=== PATIENT | male | born 1940 | race Caucasian/White ===

== ENCOUNTER → 2018-12-31 13:53 | Outpatient (CLI) | payer MEDICARE, BC ==
[2015-11-16 09:01] VITALS: BMI 17.6
[~2018-12-31 13:53] MED LIST: CARAFATE1 G PO; LEVAQUIN PREMI750 MG PO; LEVSIN/ANASP0.125 MG PO; OMEGA 3 FISH OI1 CAP PO; PEPCID20 MG PO; PRILOSEC20 MG PO
== END | disposition home or self-care (01) ==
LOC: D.MRI 13:53
PROVIDERS: ATTEND Family Medicine
DX: M51.36 Other intervertebral disc degeneration, lumbar region (principal); R20.2 Paresthesia of skin

== ENCOUNTER 2019-01-22 07:35 | Inpatient (IN) | payer MEDICARE, BC ==
[2019-01-22] MEDS ORDERED: MOBIC7.5 MG PO (07:42)
--- NOTE | 2019-01-22 07:57 | NUR ---
ERP AT BEDSIDE.
[2019-01-22 08:35] LABS: ALKALINE PHOSPHATASE 72 U/L (46-116); ALT (SGPT) 23 U/L (10-68); BILIRUBIN - TOTAL 0.46 mg/dL (0.2-1.3); CALC OSMOLALITY 267 mosm/kg (275-300); CALCIUM 8.5 mg/dL (8.5-10.1); CARBON DIOXIDE 28.7 mmol/L (21.0-32.0); CHLORIDE - SERUM 102 mmol/L (98-107); MAGNESIUM - SERUM 1.8 mg/dL (1.8-2.4); POTASSIUM - SERUM 3.9 mmol/L (3.5-5.1); PROTEIN - SERUM 6.5 g/dL (6.4-8.2); SODIUM 133 mmol/L (136-145); UREA NITROGEN 17 mg/dL (7-18); eGFR NON AFRICAN AMERICAN 77 mL/min (90-120)
[2019-01-22 08:37] LABS: GLUCOSE 96 mg/dL (74-106)
[2019-01-22 08:41] LABS: HEMATOCRIT 34.4 % (42.0-54.0); HEMOGLOBIN 11.8 g/dL (13.5-17.5); MCH 28.9 pg (26.0-34.0); MCHC 34.3 g/dL (31.0-37.0); MCV 84.1 fL (80.0-100.0); MEAN PLATELET VOLUME 9.8 fL (7.4-10.4); PLATELET COUNT 212 10x3/uL (130-400); RBC 4.09 10x6/uL (4.20-6.10); RDW 13.5 % (11.5-14.5); WBC 21.6 10x3/uL (4.8-10.8)
--- NOTE | 2019-01-22 09:01 | NUR ---
CLEAN CATCH URINE COLLECTED AND SENT TO LAB.
[2019-01-22 09:09] LABS: APPEARANCE CLEAR (CLEAR); BILIRUBIN NEGATIVE (NEGATIVE); COLOR STRAW (YELLOW); GLUCOSE NEGATIVE (NEGATIVE); KETONE NEGATIVE (NEGATIVE); NITRITE NEGATIVE (NEGATIVE); PROTEIN NEGATIVE (NEGATIVE); SPECIFIC GRAVITY 1.005 (1.005-1.020); UROBILINOGEN NORMAL (NORMAL)
[2019-01-22 09:31] VITALS: BP 145/73
[2019-01-22 09:59] LABS: LYMPHOCYTES 5 % (15-50); MONOCYTES 7 % (2-11); NEUTROPHILS 86 % (40-80); PLATELET ESTIMATE NORMAL
--- NOTE | 2019-01-22 10:30 | NUR ---
PT DENIES NEEDS AT THIS TIME. BED LOW, SIDE RAILS X'S 2, CALL LIGHT IN REACH, AT BEDSIDE.
[2019-01-22 11:55] VITALS: BP 142/64
--- NOTE | 2019-01-22 11:56 | MORECARE ---
CASE MANAGEMENT DISCHARGE SUMMARY PATIENT: FATOUMATA RENDON UNIT: [id number] ADM DATE: 01/22/19 AGE: 78 : 42 SEX: M ROOM/BED: D.1210 AUTHOR: MAKI FAGAN PHYSICIAN: REFERRING PHYSICIAN: LARRY CABALLERO MD DATE OF SERVICE: 01/22/19 Discharge Plan Patient Name: FATOUMATA RENDON Facility: [facility]:[place] : 1940 Planned Disposition: Home Anticipated Discharge Date: Discharge Date: Expected LOS: Initial Reviewer: [email or web address] Initial Review Date: 01/22/2019 Generated: 01/22/19 12:56 pm DCP- Discharge Planning Updated by [email or web address]: Tessie Cabello on 01/22/19 10:[address] Patient Name: FATOUMATA RENDON Admission Status: ER Accout number: [id number] Admission Date: 01-22-2019 : 1940 Admission Diagnosis: Attending: LARRY CABALLERO Current LOS: 1 Anticipated DC Date: Planned Disposition: Home Primary Insurance: MEDICARE A & B Discharge Planning Comments: CM met with patient and his , Minerva Rendon, to complete initial dc planning assessment. CM educated patient on the CM role and verbal consent given by patient to complete assessment. CM verified patient's address, phone number, and emergency contact phone numbers. Patient lives at home with his . At discharge patient plans to return home with his and feels this is a safe discharge. CM discussed availability of home health, rehab services, and medical equipment. Patient denied known discharge needs at this time. Patient reports his will transport him home at time of discharge. CM will continue to follow and will assist as needed with dc plans/needs. Director Private: Tessie Cabello RN, [facility] DCPIA - Discharge Planning Initial Assessment Updated by [email or web address]: Tessie Cabello on 01/22/19 11:53 am * Is the patient Alert and Oriented? Yes * How many steps to enter\exit or inside your home? one * PCP Dr. Caballero * Pharmacy [facility] [address] * Preadmission Environment Home with Family * ADLs Partial Dependent * Partial ADLs (Assistance needed) Ambulation Dressing Medication Management Transfers * Equipment Cane Rolling Walker Wheelchair * List name and contact numbers for known caregivers / representatives who currently or will assist patient after discharge: Minerva Rendon - - [phone] * Verbal permission to speak to the caregivers and representatives has been obtained from the patient. Yes * Community resources currently utilized None * Additional services required to return to the preadmission environment? No * Can the patient safely return to the preadmission environment? Yes * Has this patient been hospitalized within the prior 30 days at any hospital? No Patient Name: FATOUMATA RENDON Page [phone] at 1156 All edits/amendments must be made on the electronic document DICTATION DATE: 01/22/19 1155 CUSHION MAKER: LISA 01/22/19 1155 RPT#: [id number] DC DATE: STATUS: ADM IN [facility] [address] [place] [address] END OF REPORT
[2019-01-22 13:22] VITALS: BMI 18.3
[2019-01-22 14:01] VITALS: BMI 17.6
--- NOTE | 2019-01-22 20:00 | NUR ---
EVENING ROUNDS MADE. PT SITTING UP IN BED. DENIES NEEDS AT THIS TIME. BREATHING EVEN AND UNALBORED. FAMILY AT BEDSIDE. ANNIE MAT ON. WILL CTM.
[2019-01-22 20:11] VITALS: BP 180/88
--- NOTE | 2019-01-22 21:01 | NUR ---
VITALS STABLE. PT TOOK MEDS WHOLE IN PUDDING. DENIES PAIN AT THIS TIME. NO FURTHER CONCERNS. WILL CTM.
--- NOTE | 2019-01-23 03:04 | NUR ---
PT RESTING COMFORTABLY AT THIS TIME. AT BEDSIDE. FALL PRECAUTIONS IN PLACE. BREATHING SHALLOW. RM AIR. YELLOW GOWN NON, NON SKID SOCKS, BED LOWERED AND LOCKED. ANNIE MAT ON, CL IN REACH. WILL CTM.
--- NOTE | 2019-01-23 05:33 | NUR ---
I AGREE WITH BINDER OPERATOR ASSESSMENT.
[2019-01-23 05:42] VITALS: BP 138/85
--- NOTE | 2019-01-23 10:30 | NUR ---
REC'D BACK PT BACK FROM [facility] FOR CYSTOSCOPY AND OLVERA INSERTION VIA DR. PARRA. URINE NOTED TO COLLECTION DEVICE YELLOW IN COLOR. NO C/O NOTED OR VOICED. AND C/L IN REACH AT BEDSIDE.
[2019-01-23 10:53] VITALS: BP 149/84
--- NOTE | 2019-01-23 11:22 | OP ---
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 PROCEDURE: Cystoscopy and insertion of Ruiz catheter over a guidewire. FINDINGS: Bulbar urethral false passage. Bilateral lateral lobe obstruction of the prostate with no median lobe. Heavily trabeculated bladder without bladder tumors. BLOOD LOSS: None. CLINICAL HISTORY: This is a 78-year-old male with esophageal cancer. He is able to tolerate a liquid diet only. He came with increasing back pain due to spinal stenosis. He has not been able to void. Attempts by the floor nurse to place a Ruiz catheter were unsuccessful yesterday and there was bleeding per the urethra afterwards. I attempted to place a coude catheter and again I was unsuccessful. He had a milkshake at about 4:00 p.m. and therefore the procedure was put off until today in the morning. He is not allergic to any medications. He was given Ancef 2 grams IV benefits sales consultant to the OR. DESCRIPTION OF PROCEDURE: The patient was given IV sedation. He was then placed into the lithotomy position and prepped and draped. A 21-Faroese cystoscope with 30-degree lens was used for visualization. There were no penile urethral strictures. There is a false passage in the bulbar urethra. The true urethral lumen was identified and the scope passed through the prostatic urethra and into the bladder. Findings are as outlined above. A Sensor wire was placed into the bladder through the cystoscope. The wire was left in the bladder wall. The scope was removed. Over the wire, a Councill tip 16-Faroese Ruiz catheter was inserted into the bladder. The balloon was then inflated with 10 cc of sterile water. The wire was then removed entirely. The catheter was put to bag drainage. TRANSINT:[id number] Voice Confirmation ID: [id number] DOCUMENT ID: [id number] RASHARD PARRA MD at 1122 CC: [id number] DICTATION DATE: 01/23/19 1022 BUILDING ENERGY CONSULTANT: 01/23/19 1104 ADM IN [facility] [address] [place] [address]
[2019-01-23 19:34] VITALS: BP 137/79
[2019-01-24 00:58] VITALS: BP 153/70
[2019-01-24 04:34] VITALS: BP 150/83
[2019-01-24 06:21] LABS: BASOPHILS 0.1 % (0-2); EOSINOPHILS 3.7 % (0-7); HEMATOCRIT 30.8 % (42.0-54.0); HEMOGLOBIN 10.4 g/dL (13.5-17.5); IMMATURE GRANULOCYTES 0.3 % (0-5); LYMPHOCYTES 7.2 % (15-50); MCH 28.4 pg (26.0-34.0); MCHC 33.8 g/dL (31.0-37.0); MCV 84.2 fL (80.0-100.0); MEAN PLATELET VOLUME 9.7 fL (7.4-10.4); MONOCYTES 9.7 % (2-11); RBC 3.66 10x6/uL (4.20-6.10); RDW 13.6 % (11.5-14.5)
[2019-01-24 06:25] LABS: PLATELET COUNT 166 10x3/uL (130-400); WBC 11.5 10x3/uL (4.8-10.8)
[2019-01-24 06:36] LABS: ALBUMIN 2.4 g/dL (3.4-5.0); ALKALINE PHOSPHATASE 52 U/L (46-116); ALT (SGPT) 18 U/L (10-68); BILIRUBIN - TOTAL 0.55 mg/dL (0.2-1.3); CALC OSMOLALITY 272 mosm/kg (275-300); CALCIUM 8.4 mg/dL (8.5-10.1); CARBON DIOXIDE 25.2 mmol/L (21.0-32.0); CHLORIDE - SERUM 105 mmol/L (98-107); CREATININE - SERUM 0.8 mg/dL (0.6-1.3); GLUCOSE 99 mg/dL (74-106); POTASSIUM - SERUM 4.2 mmol/L (3.5-5.1); PROTEIN - SERUM 5.8 g/dL (6.4-8.2); SODIUM 136 mmol/L (136-145); UREA NITROGEN 15 mg/dL (7-18); eGFR NON AFRICAN AMERICAN > 90 mL/min (90-120)
[2019-01-24 08:00] VITALS: BP 159/89
--- NOTE | 2019-01-24 08:00 | NUR ---
ASSESSMENT COMPLETE. SL TO L AC LEAKING. SL REMOVED. CATHETER TIP INTACT. OLVERA PATENT DRAINING YELLOW URINE. ANNIE MAT IN USE. FAMILY AT BEDSIDE. DENIES ANY NEEDS AT THIS TIME.
--- NOTE | 2019-01-24 10:15 | NUR ---
UNABLE TO RESITE IV X 1 ATTEMPT TO R FA.
--- NOTE | 2019-01-24 10:30 | NUR ---
IV SITED TO R AC WITH 20 GAUGE X 2 ATTEMPTS BY ANANYA SANCHESSTEAM SHOVELMAN.
--- NOTE | 2019-01-24 11:46 | NUR ---
OFF FLOOR TO MRI VIA STRETCHER.
[2019-01-24 12:05] VITALS: BP 160/90
--- NOTE | 2019-01-24 12:42 | NUR ---
RETURNED TO ROOM FROM MRI.
--- NOTE | 2019-01-24 15:19 | NUR ---
SCD'S APPLIED TO BILAT LEGS. FAMILY AT BEDSIDE. DENIES ANY NEEDS AT THIS TIME.
[2019-01-24 16:00] VITALS: BP 174/96
--- NOTE | 2019-01-24 17:15 | NUR ---
VISITING WITH FAMILY. DENIES ANY NEEDS AT THIS TIME.
--- NOTE | 2019-01-24 19:48 | NUR ---
RECIEVED UP IN BED WITH EYES OPEN AND TV ON. SPOUSE AT BEDSIDE. ALERT AND ORIENTED X4 WITH SENSE OF HUMOR. F/C INTACT WITH CLEAR YELLOW URINE IN BEDSIDE DRAINAGE BAG. IV TO RIGHT AC SL.. BED ALARM IN POLACE AND WORKING. DENIES ANY NEEDS.
[2019-01-24 20:20] VITALS: BP 155/93
[2019-01-25 00:59] VITALS: BP 145/80
[2019-01-25 05:31] VITALS: BP 150/80
[2019-01-25 06:25] LABS: BASOPHILS 0.1 % (0-2); EOSINOPHILS 2.6 % (0-7); HEMOGLOBIN 10.5 g/dL (13.5-17.5); IMMATURE GRANULOCYTES 0.1 % (0-5); LYMPHOCYTES 8.7 % (15-50); MCH 28.4 pg (26.0-34.0); MCHC 33.9 g/dL (31.0-37.0); MCV 83.8 fL (80.0-100.0); MEAN PLATELET VOLUME 9.9 fL (7.4-10.4); NEUTROPHILS 78.5 % (40-80); PLATELET COUNT 196 10x3/uL (130-400); RDW 13.3 % (11.5-14.5); WBC 10.5 10x3/uL (4.8-10.8)
[2019-01-25 06:42] LABS: ALBUMIN 2.4 g/dL (3.4-5.0); ALKALINE PHOSPHATASE 59 U/L (46-116); ALT (SGPT) 21 U/L (10-68); BILIRUBIN - TOTAL 0.55 mg/dL (0.2-1.3); CALC OSMOLALITY 275 mosm/kg (275-300); CALCIUM 8.4 mg/dL (8.5-10.1); CARBON DIOXIDE 25.7 mmol/L (21.0-32.0); CHLORIDE - SERUM 105 mmol/L (98-107); CREATININE - SERUM 0.8 mg/dL (0.6-1.3); GLUCOSE 99 mg/dL (74-106); POTASSIUM - SERUM 4.1 mmol/L (3.5-5.1); SODIUM 138 mmol/L (136-145); UREA NITROGEN 12 mg/dL (7-18); eGFR NON AFRICAN AMERICAN > 90 mL/min (90-120)
--- NOTE | 2019-01-25 07:25 | NUR ---
PT RESTING IN BED, EYES OPEN. AT BEDSIDE. NO C/O PAIN. NO S/S OF ACUTE DISTRESS NOTED. ALERT AND ORIENTED. FALL PRECAUTIONS IN PLACE, ANNIE ALARM ON. PT UP WITH ASSIST. OLVERA CATHETER PRESENT. PT WEARS GLASSES. TAKES MEDS IN APPLESAUCE. IV TO RIGHT AC, SL. SITE PATENT WITHOUT REDNESS OR SWELLING. SCDS ON. PT DENIES ANYTHING FURTHER AT THIS TIME. CALL LIGHT IN REACH. WILL CONTINUE TO MONITOR.
[2019-01-25 07:39] VITALS: BP 146/86
--- NOTE | 2019-01-25 10:45 | NUR ---
PT REQUESTED GLEN MANZANO, PUT IN A ONE TIME ORDER.
[2019-01-25 11:20] VITALS: BP 135/86
[2019-01-25 15:30] VITALS: BP 130/78
--- NOTE | 2019-01-25 18:30 | NUR ---
PT RESTING IN BED, EYES CLOSED. RESPIRATIONS EVEN AND UNLABORED. AT BEDSIDE. NO C/O PAIN. NO S/S OF ACUTE DISTRESS NOTED. CALL LIGHT IN REACH. WILL CONTINUE TO MONITOR.
[2019-01-25 19:43] VITALS: BP 155/80
--- NOTE | 2019-01-25 19:51 | NUR ---
PATIENT RESTING IN BED WITH NO S/S OF DISTRESS AND GUESTS AT BEDSIDE. PATIENT DENIES NEEDS AT THIS TIME. BED IN LOWEST POSITION AND CALL LIGHT WITHIN REACH. ENCOURAGED THE PATIENT TO CALL IF HE HAS NEEDS. WILL CONTINUE TO MONITOR.
[2019-01-26 05:30] VITALS: BP 154/90
[2019-01-26 06:40] LABS: BASOPHILS 0.1 % (0-2); EOSINOPHILS 3.5 % (0-7); HEMATOCRIT 29.4 % (42.0-54.0); HEMOGLOBIN 10.1 g/dL (13.5-17.5); IMMATURE GRANULOCYTES 0.3 % (0-5); LYMPHOCYTES 13.3 % (15-50); MCH 28.9 pg (26.0-34.0); MCHC 34.4 g/dL (31.0-37.0); MEAN PLATELET VOLUME 10.2 fL (7.4-10.4); MONOCYTES 13.1 % (2-11); NEUTROPHILS 69.7 % (40-80); PLATELET COUNT 196 10x3/uL (130-400); RDW 13.2 % (11.5-14.5)
[2019-01-26 06:47] LABS: WBC 7.4 10x3/uL (4.8-10.8)
[2019-01-26 07:10] LABS: ALBUMIN 2.2 g/dL (3.4-5.0); ALKALINE PHOSPHATASE 60 U/L (46-116); ALT (SGPT) 20 U/L (10-68); BILIRUBIN - TOTAL 0.39 mg/dL (0.2-1.3); CALC OSMOLALITY 276 mosm/kg (275-300); CALCIUM 8.1 mg/dL (8.5-10.1); CARBON DIOXIDE 28.8 mmol/L (21.0-32.0); CHLORIDE - SERUM 104 mmol/L (98-107); CREATININE - SERUM 0.9 mg/dL (0.6-1.3); GLUCOSE 89 mg/dL (74-106); POTASSIUM - SERUM 4.1 mmol/L (3.5-5.1); PROTEIN - SERUM 5.7 g/dL (6.4-8.2); SODIUM 138 mmol/L (136-145); UREA NITROGEN 18 mg/dL (7-18); eGFR NON AFRICAN AMERICAN 87 mL/min (90-120)
[2019-01-26 07:14] VITALS: BP 153/83
--- NOTE | 2019-01-26 08:41 | NUR ---
AM MEDS GIVEN AT THIS TIME. PT IN BED, DENIES ANY NEEDS AT THIS TIME. CALL LIGHT IN REACH, AT BEDSIDE, NAD NOTED, WILL CONTINUE TO MONITOR.
[2019-01-26 12:14] VITALS: BP 143/89
--- NOTE | 2019-01-26 12:34 | NUR ---
PT TO MRI AT THIS TIME.
--- NOTE | 2019-01-26 13:53 | NUR ---
PT BACK TO ROOM FROM MRI.
--- NOTE | 2019-01-26 14:45 | NUR ---
Nutrition follow up Pt is tolerating full liquid diet 100% intake of all meals yesterday Pt is drinking 3 Ensure enlive per day Full liquid is goal diet at this time as he is on this type of diet at home RD following
[2019-01-26 16:00] VITALS: BP 174/94
--- NOTE | 2019-01-26 20:45 | NUR ---
PT BP IS 186/110. CALLED DOCTOR AND DORCTOR ORDERED CLONIDINE 0.1MG FOR PT'S BP.
--- NOTE | 2019-01-26 22:40 | NUR ---
RECHECKED PT'S BP 145/84. CONTINUE PLAN OF CARE.
[2019-01-26 23:17] VITALS: BP 145/84
--- NOTE | 2019-01-27 00:41 | NUR ---
CHECKED PT'S MIDNIGHT VITAL. RESULT SEE FLOW SHEET.
[2019-01-27 00:53] VITALS: BP 143/99
--- NOTE | 2019-01-27 04:04 | NUR ---
I have reviewed this patient and I concur with the Shift Assessment completed by the Licensed Practical Nurse today this shift.
[2019-01-27 05:46] LABS: BASOPHILS 0.1 % (0-2); EOSINOPHILS 2.6 % (0-7); HEMATOCRIT 30.9 % (42.0-54.0); HEMOGLOBIN 10.5 g/dL (13.5-17.5); IMMATURE GRANULOCYTES 0.2 % (0-5); LYMPHOCYTES 10.8 % (15-50); MCH 28.7 pg (26.0-34.0); MCV 84.4 fL (80.0-100.0); MONOCYTES 10.4 % (2-11); NEUTROPHILS 75.9 % (40-80); PLATELET COUNT 207 10x3/uL (130-400); RBC 3.66 10x6/uL (4.20-6.10); RDW 13.1 % (11.5-14.5)
[2019-01-27 06:10] LABS: ALBUMIN 2.3 g/dL (3.4-5.0); ALKALINE PHOSPHATASE 63 U/L (46-116); ALT (SGPT) 20 U/L (10-68); BILIRUBIN - TOTAL 0.36 mg/dL (0.2-1.3); CALC OSMOLALITY 279 mosm/kg (275-300); CALCIUM 8.5 mg/dL (8.5-10.1); CARBON DIOXIDE 27.1 mmol/L (21.0-32.0); CHLORIDE - SERUM 105 mmol/L (98-107); CREATININE - SERUM 0.8 mg/dL (0.6-1.3); GLUCOSE 93 mg/dL (74-106); POTASSIUM - SERUM 4.2 mmol/L (3.5-5.1); PROTEIN - SERUM 5.9 g/dL (6.4-8.2); SODIUM 139 mmol/L (136-145); UREA NITROGEN 19 mg/dL (7-18); eGFR NON AFRICAN AMERICAN > 90 mL/min (90-120)
[2019-01-27 06:27] VITALS: BP 130/82
[2019-01-27 06:30] LABS: WBC 9.6 10x3/uL (4.8-10.8)
--- NOTE | 2019-01-27 06:58 | NUR ---
CARAFATE GIVEN WITH SMALL OF WATER ORDERED.
[2019-01-27 07:48] VITALS: BP 148/76
--- NOTE | 2019-01-27 07:54 | NUR ---
ALERT AND ORIENTED X 3. AT BEDSIDE. LUNGS CLEAR BILATERALLY IN ALL MARQUES. HEART SOUNDS S1 AND S2 HEARD IN ALL MARQUES. BOWEL SOUNDS ACTIVE X 4. SKIN INTACT WITHOUT REDNESS. IV TO RIGHT AC PATENT WITHOUT REDNESS SL. DENIES PAIN. DENIES NEEDS. BED LOW. FALL PRECAUTIONS IN PLACE. WILL CONTINUE TO MONITOR.
--- NOTE | 2019-01-27 09:40 | NUR ---
SPOKE WITH PHYSICIAN IN PT ROOM ABOUT NEED FOR POSSIBLE ESOPHAGEAL STENT. PHYSICIAN UNSURE IF NECESSARY. STATES PUT IN ORDER FOR CLEAR LIQUID DIET FOR NOW. ORDER PLACED.
[2019-01-27 12:12] VITALS: BP 145/76
--- NOTE | 2019-01-27 13:42 | NUR ---
RESTING IN BED. DENIES NEEDS. FAMILY AND FRIENDS AT BEDSIDE.
[2019-01-27 14:59] VITALS: BP 133/76
--- NOTE | 2019-01-27 17:11 | NUR ---
REQUESTED ENSURE. ORDERED PER ONE TIME REQUSET
--- NOTE | 2019-01-27 18:14 | NUR ---
RESTING IN BED. DENIES PAIN. DENIES NEEDS. AT BESIDE. BED LOW. FALL PRECAUTIONS IN PLACE.
[2019-01-27 19:44] VITALS: BMI 17.6
[2019-01-27 20:00] VITALS: BP 136/76
--- NOTE | 2019-01-27 21:34 | NUR ---
PT WITH EYES OPEN. FAMILY AT BEDSIDE. NO NEEDS MADE KNOWN. RECEIVED MEDICATIONS PER MAR. TOLERATED WELL. CALL LIGHT IN REACH. WILL CONTINUE TO OBSERVE.
[2019-01-28 00:15] VITALS: BP 133/76
--- NOTE | 2019-01-28 01:20 | NUR ---
PT RESTING WITH EYES CLOSED AND CHEST RISING. SLEEPING AT BEDSIDE. NO S/S OF DISTRESS. CALL LIGHT IN REACH. WILL CONTINUE TO OBSERVE.
[2019-01-28 04:23] VITALS: BP 138/79
[2019-01-28 07:34] LABS: BASOPHILS 0.1 % (0-2); EOSINOPHILS 0 % (0-7); HEMATOCRIT 33.9 % (42.0-54.0); HEMOGLOBIN 11.6 g/dL (13.5-17.5); IMMATURE GRANULOCYTES 0.2 % (0-5); LYMPHOCYTES 6.8 % (15-50); MCH 28.7 pg (26.0-34.0); MCHC 34.2 g/dL (31.0-37.0); MCV 83.9 fL (80.0-100.0); MEAN PLATELET VOLUME 9.7 fL (7.4-10.4); MONOCYTES 0.8 % (2-11); NEUTROPHILS 92.1 % (40-80); PLATELET COUNT 226 10x3/uL (130-400); RBC 4.04 10x6/uL (4.20-6.10); RDW 13.1 % (11.5-14.5); WBC 8.3 10x3/uL (4.8-10.8)
--- NOTE | 2019-01-28 07:34 | NUR ---
INITIAL ROUNDING ON THE PATIENT, HE IS RESTING IN BED WITH HOB AT 20 DEGREES. SPOUSE IN BEDSIDE CHAIR. PATIENT DENIES PAIN AND NEEDS AT THIS TIME. CALL LIGHT IN REACH
[2019-01-28 08:11] LABS: ALBUMIN 2.6 g/dL (3.4-5.0); ALKALINE PHOSPHATASE 72 U/L (46-116); ALT (SGPT) 23 U/L (10-68); BILIRUBIN - TOTAL 0.52 mg/dL (0.2-1.3); CALC OSMOLALITY 281 mosm/kg (275-300); CALCIUM 8.9 mg/dL (8.5-10.1); CHLORIDE - SERUM 103 mmol/L (98-107); CREATININE - SERUM 0.9 mg/dL (0.6-1.3); GLUCOSE 131 mg/dL (74-106); POTASSIUM - SERUM 4.3 mmol/L (3.5-5.1); PROTEIN - SERUM 6.8 g/dL (6.4-8.2); SODIUM 138 mmol/L (136-145); UREA NITROGEN 24 mg/dL (7-18); eGFR NON AFRICAN AMERICAN 87 mL/min (90-120)
[2019-01-28 08:25] VITALS: BP 133/85
[2019-01-28 11:53] VITALS: BP 128/79
[2019-01-28 17:17] VITALS: BP 138/78
[2019-01-28 20:00] VITALS: BP 154/100
--- NOTE | 2019-01-28 20:00 | NUR ---
PATIENT RECIEVED SITTING UP IN BED WITH AT HIS SIDE. VITAL SIGNS & ASSESSMENT DONE.NO C/O PAIN OR DISTRESS.CALL LIGHT WITHIN REACH. WILL [id number] TO MONITOR.
[2019-01-29] VITALS (7 sets, daily range): BP systolic 105–161; BP diastolic 67–94
--- NOTE | 2019-01-29 07:15 | NUR ---
INITIAL ROUNDING, PATIENT IS RESTING WITH EYES CLOSE, ON HIS LEFT SIDE. SPOUSE ASLEEP IN BEDSIDE CHAIR. CALL LIGHT IN REACH
--- NOTE | 2019-01-29 12:55 | NUR ---
Nutrition follow-up: Pt is receiving a clear/full liquid diet per request. Pt is drinking 3 Ensure a day and consuming milkshakes, mashed potatoes with gravy and other easy to swallow foods. Pts family is bringing food to pt that pt can swallow. Current wt of 130# is a stated weight. Pt has not been weighed on a scale since admit. Labs reviewed Recommend getting a current weight for pt. RDN following.
--- NOTE | 2019-01-29 23:20 | NUR ---
ASSESSED AT THE BEGINNING OF THE SHIFT. PT WAS UP IN SHOWER WITH ASSISTING HIM AT THE FIRST ROUND. HE CONTINUES TO HAVE A OLVERA IN PLACE AT THE BEDSIDE. HIS IV SITE IS SALINE LOCKED. ALL MEDS WERE TAKEN ORDERED AND NEITHER PATIENT OR HAVE VOICED ANY NEEDS. WILL CONTINURE TO MONITOR NEEDS.
[2019-01-30 03:43] VITALS: BP 152/89
--- NOTE | 2019-01-30 07:05 | NUR ---
INITIAL ROUNDING, THE PATIENT IS AWAKE AND SITTING UP IN THE BED WATHCHING TV, SPOUSE SITTING IN BEDSIDE CHAIR, PATIENT DENIES PAIN, NO SOB, AND DENIES ANY NEEDS AT THIS TIME. PATIENT IS HOPING TO GO HOME THIS MORNING. CALL LIGHT IN REACH, BED ALARM ON AND AUDIABLE
[2019-01-30 07:13] LABS: BASOPHILS 0 % (0-2); EOSINOPHILS 0 % (0-7); HEMOGLOBIN 10.5 g/dL (13.5-17.5); IMMATURE GRANULOCYTES 0.3 % (0-5); LYMPHOCYTES 4.8 % (15-50); MCH 29.2 pg (26.0-34.0); MCV 83.6 fL (80.0-100.0); MEAN PLATELET VOLUME 10.5 fL (7.4-10.4); NEUTROPHILS 91.9 % (40-80); PLATELET COUNT 226 10x3/uL (130-400); RBC 3.59 10x6/uL (4.20-6.10); RDW 13.3 % (11.5-14.5)
[2019-01-30 07:16] LABS: CALC OSMOLALITY 280 mosm/kg (275-300); CALCIUM 8.6 mg/dL (8.5-10.1); CARBON DIOXIDE 25.2 mmol/L (21.0-32.0); CHLORIDE - SERUM 105 mmol/L (98-107); CREATININE - SERUM 0.8 mg/dL (0.6-1.3); GLUCOSE 106 mg/dL (74-106); POTASSIUM - SERUM 3.9 mmol/L (3.5-5.1); SODIUM 139 mmol/L (136-145); UREA NITROGEN 22 mg/dL (7-18); eGFR NON AFRICAN AMERICAN > 90 mL/min (90-120)
[2019-01-30 07:17] LABS: WBC 15.8 10x3/uL (4.8-10.8)
[2019-01-30 08:32] VITALS: BP 134/76
[2019-01-30 12:30] VITALS: BP 160/90
[2019-01-30] MEDS ORDERED: LISINOPRIL10 MG PO (13:25)
[2019-01-30] MEDS ORDERED: DECADRON4 MG PO (13:26)
--- NOTE | 2019-01-30 14:57 | NUR ---
REMOVED THE IV FROM THE RIGHT FOREARM, PATIENT TOLERATED WELL
--- NOTE | 2019-01-30 18:20 | MORECARE ---
CASE MANAGEMENT DISCHARGE SUMMARY PATIENT: FATOUMATA RENDON UNIT: [id number] ADM DATE: 01/22/19 AGE: 78 : 44 SEX: M ROOM/BED: D.1210 AUTHOR: GRACIA,DOC PHYSICIAN: REFERRING PHYSICIAN: LARRY CABALLERO MD DATE OF SERVICE: 01/30/19 Discharge Plan Patient Name: FATOUMATA RENDON Facility: [facility]:[place] : 1940 Planned Disposition: Home Anticipated Discharge Date: Discharge Date: 01/30/2019 Expected LOS: Initial Reviewer: [email or web address] Initial Review Date: 01/22/2019 Generated: 01/30/19 7:20 pm DCP- Discharge Planning Updated by [email or web address]: Tessie Cabello on 01/22/19 10:[address] Patient Name: FATOUMATA RENDON Admission Status: ER Accout number: [id number] Admission Date: 01-22-2019 : 1940 Admission Diagnosis: Attending: LARRY CABALLERO Current LOS: 1 Anticipated DC Date: Planned Disposition: Home Primary Insurance: MEDICARE A & B Discharge Planning Comments: CM met with patient and his , Minerva Rendon, to complete initial dc planning assessment. CM educated patient on the CM role and verbal consent given by patient to complete assessment. CM verified patient's address, phone number, and emergency contact phone numbers. Patient lives at home with his . At discharge patient plans to return home with his and feels this is a safe discharge. CM discussed availability of home health, rehab services, and medical equipment. Patient denied known discharge needs at this time. Patient reports his will transport him home at time of discharge. CM will continue to follow and will assist as needed with dc plans/needs. Side Panel Padder: Tessie Cabello RN, [facility] DCPIA - Discharge Planning Initial Assessment Updated by [email or web address]: Tessie Cabello on 01/22/19 11:53 am * Is the patient Alert and Oriented? Yes * How many steps to enter\exit or inside your home? one * PCP Dr. Caballero * Pharmacy [facility] [address] * Preadmission Environment Home with Family * ADLs Partial Dependent * Partial ADLs (Assistance needed) Ambulation Dressing Medication Management Transfers * Equipment Cane Rolling Walker Wheelchair * List name and contact numbers for known caregivers / representatives who currently or will assist patient after discharge: Minerva Rendon - - [phone] * Verbal permission to speak to the caregivers and representatives has been obtained from the patient. Yes * Community resources currently utilized None * Additional services required to return to the preadmission environment? No * Can the patient safely return to the preadmission environment? Yes * Has this patient been hospitalized within the prior 30 days at any hospital? No Coverage Notice Reviewer: [email or web address] Sebastian Zhou Notice Issued Date-Time: 01/30/2019 14:14 Notice Type: IM Discharge Notice Notice Delivered To: Patient Relationship to Patient: Self School Traffic Guard Name: Delivery Method: HAND - Hand Delivered Rubi Days: Prior Verbal Notification: Recipient Understood Notice: Yes Recipient Signature: Yes Med Rec Note Co-signed by Attending: Coverage Notice Comment: Last DP export: 01/22/19 10:56 a Patient Name: FATOUMATA RENDON Page [phone] at 1820 All edits/amendments must be made on the electronic document DICTATION DATE: 01/30/191818 PACKAGE CAR DRIVER: LISA 01/30/191818 RPT#: [id number] DC DATE:01/30/19 STATUS: DIS IN [facility] [address] [place] [address] END OF REPORT
== END 2019-01-30 15:37 | disposition home health service (06) | DRG 840 ==
LOC: D.ER 07:35 → D.M3 10:58
PROVIDERS: Emergency Medicine; Urology; ADMIT Family Medicine; ATTEND Family Medicine
PROC: 0T9B80Z Drainage of Bladder with Drainage Device, Via Natural or Artificial Opening Endoscopic (ICD-10-PCS; principal; 2019-01-23 09:15)
DX: C85.92 Non-Hodgkin lymphoma, unspecified, intrathoracic lymph nodes (principal); G95.19 Other vascular myelopathies; C72.0 Malignant neoplasm of spinal cord; N13.8 Other obstructive and reflux uropathy; C79.49 Secondary malignant neoplasm of other parts of nervous system; C15.9 Malignant neoplasm of esophagus, unspecified; N40.1 Benign prostatic hyperplasia with lower urinary tract symptoms; K22.4 Dyskinesia of esophagus; M48.00 Spinal stenosis, site unspecified; R53.1 Weakness; K21.9 Gastro-esophageal reflux disease without esophagitis; D86.89 Sarcoidosis of other sites; K22.2 Esophageal obstruction

== ENCOUNTER 2019-02-24 07:58 | Day surgery (SDC) | payer MEDICARE, BC ==
[~2019-02-24] VITALS: Ht 182.9 cm; Wt 59.1 kg
--- NOTE | ~2019-02-24 | OP ---
PATIENT NAME: FATOUMATA RENDON MEDICAL RECORD: [id number] :44 LOCATION:D[facility] ADMISSION DATE: SURGEON: RASHARD COOK MD DATE OF OPERATION: 02/24/2019 PREOPERATIVE DIAGNOSES: 1. Esophageal stricture, in need of esophagectomy. 2. Inability to pass the manometry catheter. POSTOPERATIVE DIAGNOSES: 1. Esophageal stricture, in need of esophagectomy with apparent resolution of the esophageal stricture. 2. Inability to pass the manometry catheter. 3. Paraesophageal hernia. PROCEDURES: 1. Esophagogastroduodenoscopy with antral and distal esophageal biopsies. Antral biopsies were to rule out H. pylori and the distal esophageal biopsies were to rule out George esophagus. 2. Endoscopic placement of manometry catheter. SURGEON: Rashard Cook MD PLANE CAPTAIN: None. BLOOD LOSS: Minimal. ANESTHESIA: IV sedation. COMPLICATIONS: None. The risks, possible complications and alternatives to the procedure were explained to the patient. He elects to proceed. The discussion specifically included, but was not limited to, bleeding requiring emergency reoperation, infection, endoscopic perforation. ENDOSCOPIC COURSE: The patient was conveyed to the endoscopy suite electively on 02/24/2019. IV sedation was induced by the anesthesia staff. A bite block was inserted. A gastroscope was inserted into the mouth. It was advanced easily into the hypopharynx. The esophagus was easily intubated as were the stomach and duodenum. Upon withdrawal, retroflexed and angulus views were obtained. Antral biopsies were obtained. Distal esophageal biopsies were obtained. I then withdrew the endoscope into the hypopharynx. Through a nostril, I advanced the manometry catheter. I was able to guide this by inserting my fingers into his mouth. I advanced into the esophagus through the cricopharyngeus. I then intubated the esophagus with my gastroscope. I was able to push the manometry catheter with the endoscope down into the body of the stomach. I then slowly withdrew the endoscope. There was no dislodgement of the manometry catheter. It did curl somewhat in the mouth. I was able to uncurl it and advanced it a bit further. The gastroscope was then withdrawn under direct vision. The manometry catheter is going to be backed out by the nurse to the appropriate OPERATIVE REPORT [id number] FATOUMATA RENDON level and the manometric study will take place prior to him going back to his room. TRANSINT:[id number] Voice Confirmation ID: [id number] DOCUMENT ID: [id number] RASHARD COOK MD CC: [id number] DICTATION DATE: 02/24/19 1237 CERTIFIED PESTICIDE APPLICATOR: 02/24/19 1324 [facility] [place] [id number] [place] [id number]
[~2019-02-24 07:58] MED LIST changes: +DECADRON4 MG PO; +LISINOPRIL10 MG PO; +MOBIC7.5 MG PO
[2019-02-24 08:30] LABS: CALC OSMOLALITY 266 mosm/kg (275-300); CALCIUM 8.3 mg/dL (8.5-10.1); CARBON DIOXIDE 32.7 mmol/L (21.0-32.0); CHLORIDE - SERUM 100 mmol/L (98-107); CREATININE - SERUM 0.9 mg/dL (0.6-1.3); GLUCOSE 90 mg/dL (74-106); POTASSIUM - SERUM 4.3 mmol/L (3.5-5.1); SODIUM 133 mmol/L (136-145); UREA NITROGEN 15 mg/dL (7-18); eGFR NON AFRICAN AMERICAN 87 mL/min (90-120)
[2019-02-24 08:43] LABS: HEMATOCRIT 34.6 % (42.0-54.0); HEMOGLOBIN 11.6 g/dL (13.5-17.5); MCH 28.6 pg (26.0-34.0); MCHC 33.5 g/dL (31.0-37.0); MCV 85.4 fL (80.0-100.0); MEAN PLATELET VOLUME 9.3 fL (7.4-10.4); RBC 4.05 10x6/uL (4.20-6.10); RDW 13.7 % (11.5-14.5); WBC 9.5 10x3/uL (4.8-10.8)
[2019-02-24 09:23] VITALS: BP 119/83; Ht 182.9 cm; Wt 59.1 kg
--- NOTE | 2019-02-24 13:13 | NUR ---
PT DC INSTRUCTIONS REVIEWED AT THIS TIME. INSTRUCTED PT THAT OFFICE WOULD CALL TO RESCHEDULE SWALLOW STUDY, PER DR COOK. PT VERBALIZES UNDERSTANDING. IV REMOVED AT THIS TIME, INTACT, NO REDNESS OR SWELLING NOTED AT SITE.
--- NOTE | 2019-02-24 14:35 | HP ---
PATIENT: FATOUMATA RENDON MEDICAL RECORD: [id number] ACCOUNT: [id number] LOCATION:[place] : 44 ADMISSION DATE: 02/24/19 PCP: LARRY CABALLERO HISTORY AND PHYSICAL EXAMINATION CHIEF COMPLAINT: Esophageal stricture. HISTORY OF PRESENT ILLNESS: The patient could not tolerate placement of an esophageal manometry catheter. I have been asked to perform a workup prior to the patient being referred to an esophageal surgeon. I felt the patient might require an esophagectomy. My therapies for this patient's esophageal stricture have included EGD with balloon dilation as well as placement of esophageal stent, which has been removed. The last dilation was up to a 30-Kiswahili. He is here to undergo EGD as well as placement of the esophageal manometry catheter. Interestingly, he states that recently he was around the steroids and he states that this causes dysphagia to resolve completely. So, it may be that he can avoid an esophageal resection. HOME MEDICATIONS: Please see the nursing list. They include Carafate, Decadron as well as Pepcid. ALLERGIES: No known drug allergies. SOCIAL HISTORY: He is a nonsmoker. PAST MEDICAL AND SURGICAL HISTORY: Occasional gastroesophageal reflux disease, hypertension, esophageal stricture. He states he has had no operation of his esophagus in the past. PHYSICAL EXAMINATION: GENERAL: The patient does not appear acutely ill. He does not appear chronically ill. VITAL SIGNS: Reviewed. EARS: External ears appear normal. EYES: Extraocular movements are intact. NECK: Trachea is midline. CHEST: No intercostal retractions. PULMONARY: Nonlabored and no stridor. IMPRESSION: History of esophageal stricture, which may require esophageal resection. PLAN: EGD with endoscopic placement of an esophageal manometry catheter. TRANSINT:[id number] Voice Confirmation ID: [id number] DOCUMENT ID: [id number] HISTORY AND PHYSICAL [id number] JULIETAVALERIEFATOUMATAJIE ROBERT MD at 1435 CC: LARRY CABALLERO MD [id number] DICTATION DATE: 02/24/19 1114 CORE DRILLER HELPER: 02/24/19 1137 [facility] 02/24/19 [place] [address]
== END 2019-02-24 13:20 | disposition home or self-care (01) ==
LOC: D.OPS 07:58
PROVIDERS: Anesthesiology; ATTEND Surgery
DX: K22.2 Esophageal obstruction (principal); K44.9 Diaphragmatic hernia without obstruction or gangrene

== ENCOUNTER → 2019-03-05 08:29 | Outpatient (CLI) | payer MEDICARE, BC ==
[2019-02-24 09:23] VITALS: BMI 17.6
== END | disposition home or self-care (01) ==
LOC: D.RAD 08:29
PROVIDERS: ATTEND Surgery
DX: K22.2 Esophageal obstruction (principal)

== ENCOUNTER 2019-03-12 09:00 | Day surgery (SDC) | payer MEDICARE, BC ==
[2019-03-11 09:16] LABS: BASOPHILS 0.2 % (0-2); EOSINOPHILS 0.6 % (0-7); HEMATOCRIT 34.1 % (42.0-54.0); HEMOGLOBIN 11.7 g/dL (13.5-17.5); IMMATURE GRANULOCYTES 1.6 % (0-5); LYMPHOCYTES 22.5 % (15-50); MCH 28.6 pg (26.0-34.0); MCHC 34.3 g/dL (31.0-37.0); MCV 83.4 fL (80.0-100.0); MEAN PLATELET VOLUME 8.4 fL (7.4-10.4); MONOCYTES 8.9 % (2-11); NEUTROPHILS 66.2 % (40-80); RBC 4.09 10x6/uL (4.20-6.10); RDW 13.2 % (11.5-14.5); WBC 8.5 10x3/uL (4.8-10.8)
[2019-03-11 09:25] LABS: INR 0.95 (0.85-1.17); PROTIME 12.2 SECONDS (11.6-15.0)
[2019-03-11 09:26] LABS: APTT 27.2 SECONDS (22.8-39.4)
[2019-03-11 09:41] LABS: PLATELET COUNT 206 10x3/uL (130-400)
[~2019-03-12] VITALS: Ht 182.9 cm; Wt 59.0 kg
[2019-03-12 10:37] VITALS: BP 152/90; Ht 182.9 cm; Wt 59.0 kg
--- NOTE | 2019-03-12 13:55 | NUR ---
REC'D FROM RR. OLVERA TO GRAVITY WITH BLOODY URINE DRAINING IN BAG. FAMILY AT BEDSIDE.
--- NOTE | 2019-03-12 14:25 | NUR ---
KAYLEE BROWNE SERVED.
--- NOTE | 2019-03-12 14:40 | NUR ---
IV DC'D WITH CATHETER INTACT.
--- NOTE | 2019-03-12 14:55 | NUR ---
TOLERATED DIET. C/O OF DISCOMFORT FROM CATHETER. FEELS IT IS NOT DRAINING.
--- NOTE | 2019-03-12 15:03 | OP ---
PATIENT NAME: FATOUMATA RENDON MEDICAL RECORD: [id number] :44 LOCATION:D[facility] ADMISSION DATE: SURGEON: RASHARD PARRA MD DATE OF OPERATION: 03/12/2019 SURGEON: Rashard Parra MD ANESTHESIA: TIVA by Hermila Castellon CRNA DIAGNOSES: Chronic urinary retention due to BPH and bladder stones. PROCEDURES: Bladder stone evacuation, UroLift times 5 units deployed and 4 held in position. FINDINGS: Bilateral lateral lobe obstruction. Single ureteral orifices bilaterally. Heavily trabeculated bladder with inflammation from the indwelling Ruiz catheter. Bladder stones. BLOOD LOSS: None. CLINICAL HISTORY: This is a 78-year-old male with a history of esophageal cancer. He has urinary retention. When I scoped him to put the Ruiz catheter in, he had bilateral lateral lobe hyperplasia with no median lobe. IPSS score is 28 and quality of life score is 4. He wishes to have the UroLift procedure done in order to eventually get rid of the Ruiz catheter. He is not allergic to any medications. He was given Ancef on-call to the OR. DESCRIPTION OF PROCEDURE: The patient was given IV sedation. He was then placed into lithotomy position and prepped and draped. The UroLift scope was introduced. Findings are as outlined above. Numerous small bladder stones were seen. These are similar to flat plates and probably represent calcification coming off the indwelling Ruiz catheter. An Ellik evacuator was used to remove the stone debris from the bladder. We then attempted to put the 2 bladder neck units. One on each side was done. This was 1.5 cm distal to the bladder neck. On the left anterolateral sulcus, the unit failed to fire properly and the needle was left protruding out. The needle was pulled back out through the sheath of the cystoscope. This unit was discarded. Another unit was used in the left anterolateral position near the bladder neck and this one did hold. A similar unit was placed on the right anterolateral position 1.5 cm distal to the bladder neck. Two more units were then placed anterolaterally at the verumontanum level, one on each side. At this point, the prostatic urethra was wide open anteriorly. A 16-Paraguayan Ruiz catheter was placed back into the bladder. We will bring the patient back next week for a voiding trial. TRANSINT:[id number] Voice Confirmation ID: [id number] DOCUMENT ID: [id number] RASHARD PARRA MD at 1503 CC: [id number] DICTATION DATE: 03/12/19 1350 SHEET CATCHER: 03/12/19 1459 REG [facility] [address] [id number]
--- NOTE | 2019-03-12 15:45 | NUR ---
OLVERA BAG DRAINED. PT CONTINUES TO C\O OF DISCOMFORT. OLVERA CHECKED AND TUBING WAS CURLED AND NOT ALLOWING A CONSTANT GRAVITY FLOW. STAT LOCK CHANGED AND PT RELATES INSTANT RELIEF. WRITTEN AND VERBAL DC INST. GIVEN TO PATIENT. VERBALIZED UNDERSTANDING.
--- NOTE | 2019-03-12 16:00 | NUR ---
DC'D HOME WITH FAMILY VIA PRIVATE VEHICLE. STABLE AT TIME OF DC.
== END 2019-03-12 16:00 | disposition home or self-care (01) ==
LOC: D.OPS 09:00 → D.PAN 09:45 → D.OPS 09:45 → D.PAN 11:15 → D.OPS 11:30 → D.PAN 11:45 → D.OPS 16:00
PROVIDERS: Anesthesiology; ATTEND Urology
DX: N40.1 Benign prostatic hyperplasia with lower urinary tract symptoms (principal); N13.8 Other obstructive and reflux uropathy; R33.8 Other retention of urine; N21.0 Calculus in bladder; N32.89 Other specified disorders of bladder; Z01.812 Encounter for preprocedural laboratory examination

== ENCOUNTER 2019-03-15 21:37 | Emergency (ER) | payer MEDICARE, BC ==
[~2019-03-15] VITALS: Ht 182.9 cm; Wt 59.1 kg
[2019-03-15 21:42] VITALS: Ht 182.9 cm; Wt 59.1 kg
[2019-03-15 22:47] LABS: HEMATOCRIT 31.1 % (42.0-54.0); HEMOGLOBIN 10.6 g/dL (13.5-17.5); MCH 27.9 pg (26.0-34.0); MCHC 34.1 g/dL (31.0-37.0); MCV 81.8 fL (80.0-100.0); MEAN PLATELET VOLUME 8.5 fL (7.4-10.4); RDW 12.8 % (11.5-14.5); WBC 7.7 10x3/uL (4.8-10.8)
[2019-03-15 22:50] LABS: PLATELET COUNT 278 10x3/uL (130-400)
[2019-03-15 23:01] LABS: PROTIME 12.7 SECONDS (11.6-15.0)
[2019-03-15 23:02] LABS: APTT 27.5 SECONDS (22.8-39.4)
[2019-03-15 23:04] LABS: EOSINOPHILS 1 % (0-7); LYMPHOCYTES 21 % (15-50); MONOCYTES 5 % (2-11); NEUTROPHILS 71 % (40-80)
[2019-03-15 23:05] LABS: PLATELET ESTIMATE NORMAL; ROULEAUX 1+
[2019-03-15 23:06] LABS: ALBUMIN 2.2 g/dL (3.4-5.0); ALKALINE PHOSPHATASE 86 U/L (46-116); ALT (SGPT) 24 U/L (10-68); BILIRUBIN - TOTAL 0.28 mg/dL (0.2-1.3); CALC OSMOLALITY 261 mosm/kg (275-300); CALCIUM 8.1 mg/dL (8.5-10.1); CARBON DIOXIDE 29.4 mmol/L (21.0-32.0); CHLORIDE - SERUM 98 mmol/L (98-107); CREATININE - SERUM 0.8 mg/dL (0.6-1.3); GLUCOSE 91 mg/dL (74-106); POTASSIUM - SERUM 3.9 mmol/L (3.5-5.1); PROTEIN - SERUM 5.7 g/dL (6.4-8.2); SODIUM 131 mmol/L (136-145); UREA NITROGEN 9 mg/dL (7-18); eGFR NON AFRICAN AMERICAN > 90 mL/min (90-120)
[2019-03-15 23:30] LABS: CREATINE KINASE 35 UL (21-232); LIPASE 194 U/L (73-393)
[2019-03-15 23:32] LABS: TROPONIN-I < 0.017 ng/mL (0.000-0.060)
[2019-03-15 23:54] LABS: PRO BNP 360 pg/mL (0-450); THYROID STIMULATING HORMONE 0.97 uIU/mL (0.36-3.74)
[2019-03-16 00:45] LABS: APPEARANCE SL CLDY (CLEAR); BILIRUBIN NEGATIVE (NEGATIVE); COLOR YELLOW (YELLOW); GLUCOSE NEGATIVE (NEGATIVE); KETONE NEGATIVE (NEGATIVE); NITRITE NEGATIVE (NEGATIVE); PROTEIN 1+ mg/dL (NEGATIVE); UROBILINOGEN NORMAL (NORMAL)
[2019-03-16 00:46] LABS: BACTERIA FEW /hpf (NONE SEEN); EPITHELIAL CELLS 0-5 /hpf (0-5)
[2019-03-16] MEDS ORDERED: CIPRO500 MG PO (00:55)
[2019-03-16 01:09] VITALS: BP 153/97
== END 2019-03-16 01:09 | disposition home or self-care (01) ==
LOC: D.ER 21:37
PROVIDERS: Family Medicine
DX: N39.0 Urinary tract infection, site not specified (principal); R53.1 Weakness; I10 Essential (primary) hypertension

== ENCOUNTER → 2019-04-22 20:44 | Outpatient (CLI) | payer MEDICARE, BC ==
[2019-03-15 21:42] VITALS: BMI 17.6
[~2019-04-22 20:44] MED LIST changes: +CIPRO500 MG PO
== END | disposition home or self-care (01) ==
LOC: D.LABREF 20:44
PROVIDERS: ATTEND Urology
DX: D72.829 Elevated white blood cell count, unspecified (principal)

== ENCOUNTER → 2019-05-20 18:01 | Outpatient (CLI) | payer MEDICARE, BC ==
[2019-03-15 21:42] VITALS: BMI 17.6
== END | disposition home or self-care (01) ==
LOC: D.LABREF 18:01
PROVIDERS: ATTEND Urology
DX: Z00.01 Encounter for general adult medical examination with abnormal findings (principal)

== ENCOUNTER → 2019-06-03 18:48 | Outpatient (CLI) | payer MEDICARE, BC ==
[2019-03-15 21:42] VITALS: BMI 17.6
== END | disposition home or self-care (01) ==
LOC: D.LABREF 18:48
PROVIDERS: ATTEND Urology
DX: Z01.812 Encounter for preprocedural laboratory examination (principal); Z01.810 Encounter for preprocedural cardiovascular examination

== ENCOUNTER → 2019-07-14 08:53 | Outpatient (CLI) | payer MEDICARE, BC ==
[2019-03-15 21:42] VITALS: BMI 17.6
[2019-07-15 11:10] LABS: ANA REFLEX - ANTICHROMATIN ABS 2.2 AI (0.0-0.9); ANA REFLEX - CENTROMERE B ABS <0.2 AI (0.0-0.9); ANA REFLEX - DBL STRANDED DNA 3 IU/mL (0-9); ANA REFLEX - DIRECT Positive (Negative); ANA REFLEX - JO-1 AB <0.2 AI (0.0-0.9); ANA REFLEX - RNP ANTIBODIES <0.2 AI (0.0-0.9); ANA REFLEX - SCL-70 <0.2 AI (0.0-0.9); ANA REFLEX - SJOGRENS AB SSA <0.2 AI (0.0-0.9); ANA REFLEX - SJOGRENS AB SSB <0.2 AI (0.0-0.9); ANA REFLEX - SMITH AB <0.2 AI (0.0-0.9)
[2019-07-17 19:08] LABS: ANGIOTENSIN CONVERTING ENZYME 8 U/L (14-82)
[2019-07-18 18:08] LABS: FUNGAL - ASP FLAVUS Negative (Neg:<1:1); FUNGAL - ASP NIGER Negative (Neg:<1:1); FUNGAL - ASPER FUMIGATUS Negative (Neg:<1:1)
== END | disposition home or self-care (01) ==
LOC: D.LAB 08:00 → D.CT 10:30
PROVIDERS: ATTEND Internal Medicine Pulmonary Disease
DX: D86.9 Sarcoidosis, unspecified (principal); Z77.120 Contact with and (suspected) exposure to mold (toxic); J95.851 Ventilator associated pneumonia

== ENCOUNTER 2019-07-30 06:00 | Outpatient (CLI) | payer MEDICARE, BC ==
[~2019-07-30] VITALS: Ht 182.9 cm; Wt 59.1 kg
[2019-07-30 06:38] LABS: CALC OSMOLALITY 276 mosm/kg (275-300); CALCIUM 9.5 mg/dL (8.5-10.1); CARBON DIOXIDE 29.8 mmol/L (21.0-32.0); CHLORIDE - SERUM 106 mmol/L (98-107); GLUCOSE 93 mg/dL (74-106); POTASSIUM - SERUM 3.9 mmol/L (3.5-5.1); SODIUM 140 mmol/L (136-145); UREA NITROGEN 7 mg/dL (7-18); eGFR NON AFRICAN AMERICAN 77 mL/min (90-120)
[2019-07-30 06:43] LABS: APTT 25.6 SECONDS (22.8-39.4)
[2019-07-30 06:44] LABS: INR 0.98 (0.85-1.17); PROTIME 12.5 SECONDS (11.6-15.0)
[2019-07-30 07:45] VITALS: BP 159/91; Ht 182.9 cm; Wt 59.1 kg
[2019-07-30 08:29] LABS: HEMATOCRIT 33.4 % (42.0-54.0); HEMOGLOBIN 10.9 g/dL (13.5-17.5); LYMPHOCYTES 35.5 % (15-50); MCH 26.4 pg (26.0-34.0); MCHC 32.6 g/dL (31.0-37.0); MCV 80.9 fL (80.0-100.0); MEAN PLATELET VOLUME 9.6 fL (7.4-10.4); PLATELET COUNT 292 10x3/uL (130-400); RBC 4.13 10x6/uL (4.20-6.10); RDW 13.2 % (11.5-14.5); WBC 6.3 10x3/uL (4.8-10.8)
--- NOTE | 2019-07-30 16:55 | NUR ---
1211 PORTABLE CXR DONE. 1315 CXR REPORT INDICATES THERE IS NO PNEUMOTHORAX. WILL START PT ON FLUIDS AND FINGER FOODS. 1415 IV DC'D. CATHETER TIP INTACT. NO BLEEDING AT SITE. BANDAID APPLIED. DISCHARGE INSTRUCTIONS GIVEN. PT AND HIS VERBALIZE UNDERSTANDING OF INSTRUCTIONS. PT VS RECORDED ON POST PROCEDURE FORM AND IN PAPER CHART. VSS AND PT READY FOR DISCHARGE HOME.
== END 2019-07-30 14:32 | disposition home or self-care (01) ==
LOC: D.CT 06:00
PROVIDERS: Specialist; ATTEND Internal Medicine Pulmonary Disease
DX: R91.1 Solitary pulmonary nodule (principal)

== ENCOUNTER 2019-08-25 07:09 | Outpatient (CLI) | payer MEDICARE, BC ==
[~2019-08-25] VITALS: Ht 182.9 cm; Wt 59.1 kg
[2019-08-25 07:34] LABS: BASOPHILS 0.3 % (0-2); EOSINOPHILS 2.1 % (0-7); HEMATOCRIT 32.6 % (42.0-54.0); HEMOGLOBIN 10.3 g/dL (13.5-17.5); LYMPHOCYTES 36.5 % (15-50); MCH 25.4 pg (26.0-34.0); MCHC 31.6 g/dL (31.0-37.0); MCV 80.3 fL (80.0-100.0); MEAN PLATELET VOLUME 9.3 fL (7.4-10.4); MONOCYTES 12.4 % (2-11); NEUTROPHILS 48.7 % (40-80); PLATELET COUNT 267 10x3/uL (130-400); RBC 4.06 10x6/uL (4.20-6.10); RDW 13.6 % (11.5-14.5); WBC 6.5 10x3/uL (4.8-10.8)
[2019-08-25 07:38] LABS: CALC OSMOLALITY 279 mosm/kg (275-300); CALCIUM 9.4 mg/dL (8.5-10.1); CARBON DIOXIDE 28.2 mmol/L (21.0-32.0); CHLORIDE - SERUM 106 mmol/L (98-107); GLUCOSE 94 mg/dL (74-106); INR 0.96 (0.85-1.17); POTASSIUM - SERUM 4.1 mmol/L (3.5-5.1); PROTIME 12.3 SECONDS (11.6-15.0); SODIUM 141 mmol/L (136-145); UREA NITROGEN 10 mg/dL (7-18); eGFR NON AFRICAN AMERICAN 77 mL/min (90-120)
[2019-08-25 08:09] VITALS: Ht 182.9 cm; Wt 59.1 kg
--- NOTE | 2019-08-25 12:45 | NUR ---
DC INSTRUCTIONS GIVEN TO PT/FAMILY BY ALIX RANGEL RN. STATE UNDERSTANDING.
--- NOTE | 2019-08-25 13:32 | NUR ---
DR ARVIZU CALLED TO INFORM ME THAT HE WANTS TO DO ANOTHER CHEST X-RAY ON 1430. AND DC PT IF X-RAY IS CLEAR.
--- NOTE | 2019-08-25 14:02 | NUR ---
PT DENIES PAIN/NEEDS AT THIS TIME. O2 SAT ON RA IS 100%. AT BEDSIDE. WILL CONTINUE TO MONITOR.
--- NOTE | 2019-08-25 15:27 | NUR ---
1525 PT RESTING WELL NO SOB PULSE OX 99 ON RA. NO CHEST PAINS IV SALINE LOCKED
--- NOTE | 2019-08-25 19:17 | NUR ---
1430 RECIEVED REPORT FROM DERRELL SALAZAR. PT IN BED ASLEEP AND AT BEDSIDE. WAITING FOR RESULTS OF SECOND CXR. O2 SATS 99% ON RA. DISCHARGE INSTRUCTIONS GIVEN. 1600 DR ARVIZU CALLED AND NOTIFIED OF PTS STATUS AND THE RESULTS OF XRAY. ORDERS GIVEN TO DISCHARGE PT IV REMOVED AND DISCHARGED HOME.
== END 2019-08-25 16:30 | disposition home or self-care (01) ==
LOC: D.SP 07:09 → D.CT 10:00 → D.SP 16:30
PROVIDERS: General Practice; ATTEND Internal Medicine Pulmonary Disease
DX: R91.1 Solitary pulmonary nodule (principal)

== ENCOUNTER 2019-10-01 08:00 | Outpatient (CLI) | payer MEDICARE, BC ==
[2019-08-25 08:09] VITALS: BMI 17.6
[2019-10-01 11:48] LABS: HEMATOCRIT 28.8 % (42.0-54.0); HEMOGLOBIN 8.9 g/dL (13.5-17.5); MCH 24.6 pg (26.0-34.0); MCHC 30.9 g/dL (31.0-37.0); MCV 79.6 fL (80.0-100.0); MEAN PLATELET VOLUME 9.4 fL (7.4-10.4); RBC 3.62 10x6/uL (4.20-6.10); RDW 13.7 % (11.5-14.5); WBC 5.1 10x3/uL (4.8-10.8)
[2019-10-01 11:59] LABS: APTT 28.4 SECONDS (22.8-39.4); INR 0.95 (0.85-1.17); PROTIME 12.7 SECONDS (11.6-15.0)
[2019-10-01 12:02] LABS: APPEARANCE CLEAR (CLEAR); BILIRUBIN NEGATIVE (NEGATIVE); COLOR YELLOW (YELLOW); GLUCOSE NEGATIVE (NEGATIVE); KETONE NEGATIVE (NEGATIVE); NITRITE NEGATIVE (NEGATIVE); PROTEIN NEGATIVE (NEGATIVE); SPECIFIC GRAVITY 1.005 (1.005-1.020); UROBILINOGEN NORMAL (NORMAL)
[2019-10-01 12:06] LABS: ALKALINE PHOSPHATASE 62 U/L (30-120); ALT (SGPT) 16 U/L (10-68); BILIRUBIN - TOTAL 0.22 mg/dL (0.2-1.3); CALC OSMOLALITY 273 mosm/kg (275-300); CALCIUM 8.5 mg/dL (8.5-10.1); CHLORIDE - SERUM 102 mmol/L (98-107); GLUCOSE 85 mg/dL (74-106); POTASSIUM - SERUM 4.1 mmol/L (3.5-5.1); PROTEIN - SERUM 6.6 g/dL (6.4-8.2); SODIUM 138 mmol/L (136-145); UREA NITROGEN 11 mg/dL (7-18); eGFR NON AFRICAN AMERICAN 77 mL/min (90-120)
== END 2019-10-01 08:01 | disposition home or self-care (01) ==
LOC: D.OPS 08:00 → D.SDCHOLD 10-05 07:30 → EDSTATUS 10-05 10:30 → D.SDCHOLD 10-05 10:30
PROVIDERS: ATTEND Thoracic Surgery (Cardiothoracic Vascular Surgery)
DX: R91.8 Other nonspecific abnormal finding of lung field (principal); K21.9 Gastro-esophageal reflux disease without esophagitis; I10 Essential (primary) hypertension

== ENCOUNTER → 2020-03-23 07:44 | Outpatient (CLI) | payer MEDICARE, BC ==
[2019-08-25 08:09] VITALS: BMI 17.6
== END | disposition home or self-care (01) ==
LOC: D.CT 07:44
PROVIDERS: ATTEND Thoracic Surgery (Cardiothoracic Vascular Surgery)
DX: R91.1 Solitary pulmonary nodule (principal)

== ENCOUNTER 2021-01-06 19:18 | Inpatient (IN) | payer MEDICARE, BC ==
[~2021-01-06] VITALS: Ht 182.9 cm; Wt 61.2 kg
[2021-01-06] MEDS ORDERED: DECADRON4 MG PO (19:34)
[2021-01-06 20:02] LABS: BASOPHILS 0 % (0-2); EOSINOPHILS 0 % (0-7); IMMATURE GRANULOCYTES 0.4 % (0-5); LYMPHOCYTES 4.4 % (15-50); MCH 14.5 pg (26.0-34.0); MCHC 25.5 g/dL (31.0-37.0); MCV 56.8 fL (80.0-100.0); MEAN PLATELET VOLUME 8.8 fL (7.4-10.4); MONOCYTES 4.3 % (2-11); NEUTROPHIL ABS# 14.42 10x3/uL (1.78-5.38); NEUTROPHILS 90.9 % (40-80); PLATELET COUNT 484 10x3/uL (130-400); RBC 3.31 10x6/uL (4.20-6.10); WBC 15.9 10x3/uL (4.8-10.8)
[2021-01-06 20:03] LABS: HEMATOCRIT 18.8 % (42.0-54.0); HEMOGLOBIN 4.8 g/dL (13.5-17.5)
[2021-01-06 20:10] LABS: APTT 24.7 SECONDS (22.8-39.4); INR 1.17 (0.85-1.17); PROTIME 13.8 SECONDS (11.6-15.0)
[2021-01-06 20:21] LABS: ANION GAP 12.9 mmol/L (8-16); CALCIUM 8.7 mg/dL (8.5-10.1); CARBON DIOXIDE 26.6 mmol/L (21.0-32.0); CREATININE - SERUM 1.2 mg/dL (0.6-1.3); POTASSIUM - SERUM 4.5 mmol/L (3.5-5.1)
[2021-01-06 20:27] LABS: ALBUMIN 2.6 g/dL (3.4-5.0); BILIRUBIN - TOTAL 0.27 mg/dL (0.2-1.3); PROTEIN - SERUM 6.3 g/dL (6.4-8.2)
[2021-01-06 20:30] VITALS: BP 144/70
[2021-01-06 20:43] LABS: % SATURATION 2 % (15-55); IRON 11 ug/dl (35-150); TOTAL IRON BIND CAPACITY 419 ug/dl (260-445); UNSAT IRON BIND CAPACITY 408 ug/dl (150-375)
[2021-01-06 21:30] VITALS: BP 148/70
[2021-01-07 00:23] VITALS: BP 150/71; BMI 18.3
--- NOTE | 2021-01-07 04:52 | NUR ---
HELPED PT TO BEDSIDE COMODE, HE IS UNSTABLE AND STILL WEAK. PT IS RECEIVING THIRD PINT OF BLOOD AT THE MOMENT ALL VITALS STABLE. WILL CONT TO MONITOR.
[2021-01-07 06:04] VITALS: BP 140/72
--- NOTE | 2021-01-07 07:39 | NUR ---
PT. RECEIVED RESTING IN BED, AWAKE ALERT AND ORIENTED. IN ROOM. IV INTACT TO R. AC INFUSING NS AND PROTONIX DRIP. DENIES ANY PAIN AT THIS TIME. NO DISTRESS. PALENESS NOTED TO SKIN COLOR. SCDS TO BLE. NON SKID SOCKS ON. CALL LIGHT WITHIN REACH. SR UP X2.
[2021-01-07 08:27] VITALS: BP 137/77
[2021-01-07 09:23] LABS: HEMATOCRIT 27.2 % (42.0-54.0); HEMOGLOBIN 8.2 g/dL (13.5-17.5)
[2021-01-07 11:54] VITALS: Ht 182.9 cm; Wt 61.2 kg
[2021-01-07 12:43] VITALS: BP 157/67
--- NOTE | 2021-01-07 13:10 | NUR ---
PRBC INFUSION INFUSING, PT TALKING WITH VISITOR AT BEDSIDE. NO DISTRESS. WILL MONITOR FOR S AND S OF REACTIONS.
[2021-01-07 14:15] LABS: HEMATOCRIT 35.6 % (42.0-54.0); HEMOGLOBIN 11.5 g/dL (13.5-17.5)
--- NOTE | 2021-01-07 16:55 | NUR ---
2ND UNIT PRBCS BEGAN INFUSING ORDERED BY . PT TOLERATING WELL. RESTING WITH EYES CLOSED. IN ROOM. CL IN REACH.
[2021-01-07 17:23] VITALS: BP 104/80
--- NOTE | 2021-01-07 19:42 | NUR ---
PATIENT RESTING IN BED WITH NO S/S OF DISTRESS AND DENIES NEEDS AT THIS TIME. SET PRBC'S TO FLUSH. BED IN LOWEST POSITION, CALL LIGHT IN REACH, AND BED ALARM ON. ENCOURAGED PATIENT AND GUEST TO CALL WITH NEEDS.
[2021-01-07 20:00] VITALS: BP 141/81
--- NOTE | 2021-01-07 21:23 | NUR ---
ADMINISTERED MEDS PER ORDERS. PATIENT ROSE MARIE WELL. ASSISTED PATIENT TO AND FROM RESTROOM. PATIENT DENIES OTHER NEEDS AT THIS TIME. BED IN LOWEST POSITION, CALL LIGHT IN REACH, AND BED ALARM ON. ENCOURAGED PATIENT TO CALL WITH NEEDS
[2021-01-07 21:41] LABS: HEMATOCRIT 32.1 % (42.0-54.0); HEMOGLOBIN 10.2 g/dL (13.5-17.5)
[2021-01-08 05:39] LABS: BASOPHILS 0.1 % (0-2); EOSINOPHILS 0.9 % (0-7); HEMATOCRIT 32.4 % (42.0-54.0); HEMOGLOBIN 10.4 g/dL (13.5-17.5); IMMATURE GRANULOCYTES 0.2 % (0-5); LYMPHOCYTE ABS# 2.04 10x3/uL (1.32-3.57); LYMPHOCYTES 14.6 % (15-50); MCH 22.6 pg (26.0-34.0); MCHC 32.1 g/dL (31.0-37.0); MONOCYTES 8.3 % (2-11); NEUTROPHIL ABS# 10.66 10x3/uL (1.78-5.38); NEUTROPHILS 75.9 % (40-80); RDW 27.7 % (11.5-14.5)
[2021-01-08 05:40] LABS: MCV 70.3 fL (80.0-100.0); PLATELET COUNT 261 10x3/uL (130-400); RBC 4.61 10x6/uL (4.20-6.10)
[2021-01-08 05:49] LABS: CALCIUM 7.8 mg/dL (8.5-10.1); CARBON DIOXIDE 24.1 mmol/L (21.0-32.0); CHLORIDE - SERUM 105 mmol/L (98-107); GLUCOSE 74 mg/dL (74-106); SODIUM 136 mmol/L (136-145); eGFR NON AFRICAN AMERICAN 77 mL/min (90-120)
[2021-01-08 05:51] LABS: CALC OSMOLALITY 272 mosm/kg (275-300); POTASSIUM - SERUM 3.8 mmol/L (3.5-5.1); UREA NITROGEN 17 mg/dL (7-18)
[2021-01-08 06:02] LABS: % SATURATION 34 % (15-55); IRON 111 ug/dl (35-150); TOTAL IRON BIND CAPACITY 321 ug/dl (260-445); UNSAT IRON BIND CAPACITY 210 ug/dl (150-375)
[2021-01-08 07:00] VITALS: BP 129/65
[2021-01-08 12:48] LABS: HEMATOCRIT 34.5 % (42.0-54.0); HEMOGLOBIN 11.1 g/dL (13.5-17.5)
--- NOTE | 2021-01-08 15:19 | NUR ---
I have reviewed this patient and I concur with the Shift Assessment completed by the Licensed Practical Nurse today this shift.
[2021-01-08 15:29] VITALS: BP 158/86
[2021-01-08 21:40] LABS: HEMATOCRIT 32.2 % (42.0-54.0); HEMOGLOBIN 10.4 g/dL (13.5-17.5)
[2021-01-09] VITALS: BP 164/88
--- NOTE | 2021-01-09 03:44 | NUR ---
PATIENT DRANK ALL OF HIS GO LYTLY,HAS BEEN HAVING BOWEL MOVEMENTS, HE IS CURRENTLY RESTING IN BED WITH HIS EYES CLOSED. HE HAS BEEN NPO SINCE MIDNIGHT.
[2021-01-09 06:42] LABS: ANION GAP 13.3 mmol/L (8-16); CALCIUM 7.9 mg/dL (8.5-10.1); CARBON DIOXIDE 21.5 mmol/L (21.0-32.0); CREATININE - SERUM 1.1 mg/dL (0.6-1.3); POTASSIUM - SERUM 3.8 mmol/L (3.5-5.1)
[2021-01-09 08:16] LABS: BASOPHILS 0.1 % (0-2); EOSINOPHILS 0.9 % (0-7); HEMATOCRIT 34.7 % (42.0-54.0); LYMPHOCYTES 20.2 % (15-50); MCH 22.2 pg (26.0-34.0); MCHC 31.8 g/dL (31.0-37.0); MCV 69.7 fL (80.0-100.0); MEAN PLATELET VOLUME 8.4 fL (7.4-10.4); MONOCYTES 6.3 % (2-11); NEUTROPHILS 72.5 % (40-80); PLATELET COUNT 263 10x3/uL (130-400); RBC 4.97 10x6/uL (4.20-6.10); RDW 33.7 % (11.5-14.5); WBC 11.1 10x3/uL (4.8-10.8)
[2021-01-09 10:18] VITALS: BP 156/88
[2021-01-09 13:14] LABS: HEMATOCRIT 36.8 % (42.0-54.0); HEMOGLOBIN 11.7 g/dL (13.5-17.5)
[2021-01-09 14:00] VITALS: BP 155/83
--- NOTE | 2021-01-09 14:03 | NUR ---
Nutrition follow-up: Pt currently NPO for bowel prep due to EGD and colonoscopy today. Per , pt has been having a good appetite Labs reviewed Wt: 135#; per this is a normal wt for pt RDN will follow-up on patients diet advancement after procedure and progress toward nutrition goals 01/12/21
--- NOTE | 2021-01-09 15:00 | NUR ---
I have reviewed this patient and I concur with the Shift Assessment completed by the Licensed Practical Nurse today this shift.
--- NOTE | 2021-01-09 15:25 | NUR ---
PATIENT STILL AWAITING EGD AND COLONOSCOPY, SPOUSE AT BEDSIDE, CONTINUE WITH PLAN OF CARE
[2021-01-09 20:00] VITALS: BP 171/95
[2021-01-09 21:44] LABS: HEMATOCRIT 41.8 % (42.0-54.0); HEMOGLOBIN 13.2 g/dL (13.5-17.5)
[2021-01-10] VITALS: BP 166/79
--- NOTE | 2021-01-10 03:45 | NUR ---
PATIENT HAS AT BEDSIDE, HIS SON BROUGHT HIM SOME FOOD IN TONIGHT HE TOLERATED IT WELL. HE HAS BEEN RESTING WELL THIS SHIFT. HE IS CURRENTLY RESTING IN BED WITH HIS EYES CLOSED.
[2021-01-10 04:00] VITALS: BP 127/65
[2021-01-10 06:06] LABS: HEMATOCRIT 34.2 % (42.0-54.0); HEMOGLOBIN 11.3 g/dL (13.5-17.5)
[2021-01-10 10:02] VITALS: BP 123/72
[2021-01-10] MEDS ORDERED: PROTONIX40 MG PO (13:22)
--- NOTE | 2021-01-10 14:39 | NUR ---
I have reviewed this patient and I concur with the Shift Assessment completed by the Licensed Practical Nurse today this shift.
[2021-01-10 14:48] VITALS: BP 172/92
[2021-01-10 15:21] LABS: HEMATOCRIT 36.6 % (42.0-54.0); HEMOGLOBIN 11.4 g/dL (13.5-17.5)
== END 2021-01-10 16:41 | disposition home or self-care (01) | DRG 368 ==
LOC: D.ER 19:18 → D.MS 22:11
PROVIDERS: Emergency Medicine; Family Medicine; Surgery; ADMIT Family Medicine; ATTEND Family Medicine
PROC: 0DJD8ZZ Inspection of Lower Intestinal Tract, Via Natural or Artificial Opening Endoscopic (ICD-10-PCS; 2021-01-09)
PROC: 0DB78ZX Excision of Stomach, Pylorus, Via Natural or Artificial Opening Endoscopic, Diagnostic (ICD-10-PCS; principal; 2021-01-09 17:02)
DX: K20.91 Esophagitis, unspecified with bleeding (principal); K29.81 Duodenitis with bleeding; K29.71 Gastritis, unspecified, with bleeding; K26.4 Chronic or unspecified duodenal ulcer with hemorrhage; D50.0 Iron deficiency anemia secondary to blood loss (chronic); J44.9 Chronic obstructive pulmonary disease, unspecified; I10 Essential (primary) hypertension; K21.9 Gastro-esophageal reflux disease without esophagitis; D50.9 Iron deficiency anemia, unspecified; Z85.01 Personal history of malignant neoplasm of esophagus

== ENCOUNTER 2021-02-19 03:41 | Inpatient (IN) | payer MEDICARE, BC ==
[~2021-02-19] VITALS: Ht 182.9 cm; Wt 66.7 kg
[~2021-02-19 03:41] MED LIST changes: +PROTONIX40 MG PO
[2021-02-19 04:26] LABS: BASOPHILS 0.4 % (0-2); EOSINOPHILS 0.1 % (0-7); HEMATOCRIT 34.7 % (42.0-54.0); LYMPHOCYTES 15.3 % (15-50); MCH 24.6 pg (26.0-34.0); MCHC 31.8 g/dL (31.0-37.0); MCV 77.5 fL (80.0-100.0); MEAN PLATELET VOLUME 8.2 fL (7.4-10.4); MONOCYTES 2.3 % (2-11); NEUTROPHILS 81.9 % (40-80); PLATELET COUNT 235 10x3/uL (130-400); RBC 4.48 10x6/uL (4.20-6.10); RDW 31.7 % (11.5-14.5); WBC 11.3 10x3/uL (4.8-10.8)
[2021-02-19 04:35] LABS: APTT 26.1 SECONDS (22.8-39.4); CALC OSMOLALITY 270 mosm/kg (275-300); CALCIUM 8.3 mg/dL (8.5-10.1); CARBON DIOXIDE 26.3 mmol/L (21.0-32.0); CHLORIDE - SERUM 100 mmol/L (98-107); POTASSIUM - SERUM 4.8 mmol/L (3.5-5.1); PROTIME 12.2 SECONDS (11.6-15.0); SODIUM 134 mmol/L (136-145); UREA NITROGEN 17 mg/dL (7-18); eGFR NON AFRICAN AMERICAN 77 mL/min (90-120)
[2021-02-19 04:38] LABS: GLUCOSE 113 mg/dL (74-106)
[2021-02-19 04:49] LABS: ALBUMIN 2.8 g/dL (3.4-5.0); ALKALINE PHOSPHATASE 72 U/L (30-120); ALT (SGPT) 36 U/L (10-68); BILIRUBIN - TOTAL 0.32 mg/dL (0.2-1.3); LIPASE 150 U/L (73-393); MAGNESIUM - SERUM 2.1 mg/dL (1.8-2.4); PRO BNP 260 pg/mL (0-450); PROTEIN - SERUM 6.3 g/dL (6.4-8.2)
[2021-02-19 04:57] LABS: TROPONIN-I < 0.017 ng/mL (0.000-0.060)
[2021-02-19 05:13] VITALS: BP 175/96
[2021-02-19 06:11] LABS: BACTERIA FEW HPF (<MOD); BILIRUBIN NEGATIVE (NEGATIVE); KETONE NEGATIVE mg/dL (< 1+); NITRITE POSITIVE (NEGATIVE); PH 7.5 (5.0-8.0); UROBILINOGEN NORMAL mg/dL (< 2); WHITE CELLS - URINE 40 HPF (0-1)
[2021-02-19 06:28] VITALS: BP 140/75
[2021-02-19 07:55] VITALS: BP 145/90
--- NOTE | 2021-02-19 15:46 | NUR ---
I have reviewed this patient and I concur with the Shift Assessment completed by the Licensed Practical Nurse today this shift.
[2021-02-19 16:35] VITALS: BP 154/81; BMI 19.9
[2021-02-20 05:51] LABS: CALCIUM 7.3 mg/dL (8.5-10.1); CARBON DIOXIDE 23.7 mmol/L (21.0-32.0); CHLORIDE - SERUM 105 mmol/L (98-107); CREATININE - SERUM 0.8 mg/dL (0.6-1.3); GLUCOSE 80 mg/dL (74-106); SODIUM 135 mmol/L (136-145); eGFR NON AFRICAN AMERICAN > 90 mL/min (90-120)
[2021-02-20 06:07] LABS: CALC OSMOLALITY 267 mosm/kg (275-300); POTASSIUM - SERUM 3.6 mmol/L (3.5-5.1); UREA NITROGEN 10 mg/dL (7-18)
--- NOTE | 2021-02-20 06:55 | NUR ---
PATIENT WITHOUT DISTRESS.DOOR OPEN.CALL LIGHT IN REACH
[2021-02-20 08:35] LABS: BASOPHILS 0.2 % (0-2); EOSINOPHILS 1.2 % (0-7); HEMATOCRIT 28.8 % (42.0-54.0); HEMOGLOBIN 9.4 g/dL (13.5-17.5); LYMPHOCYTES 22.9 % (15-50); MCH 25.6 pg (26.0-34.0); MCHC 32.8 g/dL (31.0-37.0); MCV 78.1 fL (80.0-100.0); MEAN PLATELET VOLUME 8.1 fL (7.4-10.4); NEUTROPHILS 69.7 % (40-80); RBC 3.68 10x6/uL (4.20-6.10); RDW 30.8 % (11.5-14.5)
[2021-02-20 08:43] LABS: PLATELET COUNT 175 10x3/uL (130-400); WBC 7.7 10x3/uL (4.8-10.8)
--- NOTE | 2021-02-20 10:16 | HP ---
PATIENT: FATOUMATA RENDON MEDICAL RECORD: [id number] ACCOUNT: [id number] LOCATION:D.[id number] : 44 ADMISSION DATE: 02/19/21 PCP: LARRY CABALLERO HISTORY AND PHYSICAL EXAMINATION DATE OF ADMISSION: 02/19/2021 CHIEF COMPLAINT: "Weaker than usual" and "can hardly walk" according to the patient's . HISTORY OF PRESENT ILLNESS: This is a 80-year-old white male who has a history of dementia as well as recurrent chronic upper GI bleeds and iron deficient anemia, who was brought in because the stated that he was weaker than usual, hardly walking and the last time he had these symptoms, he had profound anemia with a hemoglobin of around 5. He had an EGD, the end showing esophagitis, gastritis and duodenitis. In the ER today, he had what appeared to be a urinary tract infection. His hemoglobin was 11.0 and hematocrit 34.7. Rest of his labs was pretty normal and he is admitted for UTI with weakness and barely able to walk. PAST MEDICAL AND SURGICAL HISTORY: History of chronic upper GI bleeds. He has had a history of esophageal cancer, iron deficiency anemia. He has had chronic kidney disease, hypertension, reflux, a lung nodule, and restrictive lung disease. PAST SURGICAL HISTORY: UroLift and lung biopsies times two that were benign. DRUG ALLERGIES: None known. HOME MEDICATIONS: Pantoprazole 40 mg once a day, famotidine 20 mg twice a day, Carafate a.c. and at bedtime, lisinopril 10 mg daily. SOCIAL HISTORY: He is . He is retired. FAMILY HISTORY: Significant for coronary artery disease. HABITS: No tobacco, alcohol or drugs. REVIEW OF SYSTEMS: GENERAL: No major weight changes. HEENT: No particular sinus or allergy problems. RESPIRATORY: No diagnosis of asthma or emphysema. CARDIAC: No history of heart trouble. GASTROINTESTINAL: See above history. GENITOURINARY: No significant problems there. MUSCULOSKELETAL: A few joint aches and pains. NEUROLOGIC: He has no seizures, no migraines, but does have a diagnosis of dementia, though he is on no medicines for that. PSYCHIATRIC: No depression or melancholia but has the dementia. PHYSICAL EXAMINATION: VITAL SIGNS: Temperature 97.3, pulse 72, respirations 16, blood pressure 143/97, O2 sat 97%. GENERAL: He is awake and alert. He is lying on his right side. He does not appear to be in acute distress. He is pleasantly confused. His is at HISTORY AND PHYSICAL [id number] FATOUMATA RENDON DON bedside and answers questions for him. SKIN: Warm. HEENT: Grossly within normal limits. NECK: Supple. No JVD or bruit. HEART: Regular rate and rhythm without murmur. LUNGS: Clear. ABDOMEN: Soft, flat, nontender. EXTREMITIES: No edema. NEUROLOGIC: He seems to follow instructions, but again pleasantly confused. LABORATORY DATA: Urine showed light yellow cloudy urine with 2+ leukocyte esterase and a few bacteria. CBC with a white count of 11,300, hemoglobin 11.0, hematocrit 34.7. Basic metabolic panel; sodium 134, potassium 4.8, chloride 100, CO2 26.3, BUN 17, creatinine 1.0, glucose 113, calcium 8.3. Liver functions were all normal. INR 1.0, lactic acid 1.0, magnesium 2.1. Troponin is less than 0.017. DIAGNOSTIC STUDIES: Chest x-ray shows chronic changes and COPD, nothing acute. ASSESSMENT: 1. Urinary tract infection. 2. Weakness. 3. Dementia. PLAN: He is admitted. Start some IV fluids and urine culture is sent. We will start IV antibiotics. Other tests or procedures as warranted. TRANSINT:[id number] Voice Confirmation ID: [id number] DOCUMENT ID: [id number] JANES KEBEDE MD at 1016 CC: [id number] DICTATION DATE: 02/19/212103 SERVICE ARCHITECT: 02/20/21 0120 ADM [id number] [place] [address]
[2021-02-20 10:27] VITALS: BP 134/74
[2021-02-20 13:00] VITALS: BP 124/60
[2021-02-20 16:11] VITALS: Ht 182.9 cm; Wt 66.7 kg
[2021-02-20 17:00] VITALS: BP 166/96
[2021-02-20] MEDS ORDERED: OMNICEF300 MG PO (18:24)
[2021-02-20 20:00] VITALS: BP 139/74
[2021-02-21] VITALS: BP 128/75
--- NOTE | 2021-02-21 00:32 | NUR ---
I have reviewed this patient and I concur with the Shift Assessment completed by the Licensed Practical Nurse today this shift.
[2021-02-21 04:00] VITALS: BP 132/81
--- NOTE | 2021-02-21 08:50 | MORECARE ---
CASE MANAGEMENT DISCHARGE SUMMARY PATIENT: FATOUMATA RENDON UNIT: [id number] ADM DATE: 02/19/21 AGE: 80 : 42 SEX: M ROOM/BED: D.2216 AUTHOR: GRACIA,DOC PHYSICIAN: REFERRING PHYSICIAN: JANES KEBEDE MD DATE OF SERVICE: 02/21/21 Case Management Discharge Planning Summary COMMENTS ENTERED DATE: 02/21/21 8:41 CT COMMENT TYPE: Discharge Planning REVIEWER: Lucie Cabral CM met with patient to complete initial dc planning assessment. CM educated patient on the CM role and verbal consent given by patient to complete assessment. Patient lives at home with his spouse where he is independent with his care for the most part. His is at the bedside & stated that she helps his with his showers sometime. At discharge patient plans to return home and feels this is a safe discharge. CM discussed availability of home health, rehab services, and medical equipment. He has a walker with a seat, BSC, tub chair, and a wheelchair at home. He has had home health in the past but does not need it anymore. He is a patient of Dr Unger and uses [facility] on [address]. Patient denied known discharge needs at this time. CM will continue to follow and will assist as needed with dc plans/needs. DCP REVIEW SUMMARY ANTICIPATED D/C DATE: EXPECTED LOS : CASE STATUS: DCP Initiated INITIAL REVIEW: 02/19/2021 INITIAL REVIEWER: Lucie Cabral FINAL DISCHARGE DISPOSITION: 01 : Home or Self Care (Routine Discharge) FINAL REVIEWER: FINAL REVIEW DATE: DCP Focus Questions & Answers QUESTION: ANSWER : PATIENT: FATOUMATA RENDON ENCOUNTER: [id number] MEDICAL RECORD#: [id number] ADMISSION DATE: 02/19/2021 DISCHARGE DATE: ATTENDING MD: JANES RAMIREZ : AGE: 80 MARITAL STATUS: M DC PLAN ID: [id number] FACILITY: [facility] PRINTED ON: 02/21/21 8:50 CT All edits/amendments must be made on the electronic document DICTATION DATE: 02/21/21849 CANDY DIPPER HAND: LISA 02/21/2150 RPT#: [id number] DC DATE: STATUS: ADM IN [facility] [address] [place] [address] END OF REPORT
[2021-02-21 08:54] VITALS: BP 175/96
--- NOTE | 2021-02-21 10:30 | NUR ---
DISCHARGE INSTRUCTIONS WITH ,STATES UNDERSTANDING. WILL CALL WHEN READY FOE WHEELCHAIR
--- NOTE | 2021-02-21 10:40 | NUR ---
ASSESSMENT COMPLETED PER FLOW SHEET. PATIENT IS WITHOUT DISTRESS.TO DC HOME. AT BEDSIDE.
--- NOTE | 2021-02-21 10:50 | NUR ---
LEFT UNIT VIA WHEELCHAIR FOR TRANSPORT HOME
--- NOTE | 2021-02-21 10:51 | MORECARE ---
CASE MANAGEMENT DISCHARGE SUMMARY PATIENT: FATOUMATA RENDON UNIT: [id number] ADM DATE: 02/19/21 AGE: 80 : 42 SEX: M ROOM/BED: D.2216 AUTHOR: GRACIA,DOC PHYSICIAN: REFERRING PHYSICIAN: JANES KEBEDE MD DATE OF SERVICE: 02/21/21 Case Management Discharge Planning Summary COMMENTS ENTERED DATE: 02/21/21 8:41 CT COMMENT TYPE: Discharge Planning REVIEWER: Lucie Cabral CM met with patient to complete initial dc planning assessment. CM educated patient on the CM role and verbal consent given by patient to complete assessment. Patient lives at home with his spouse where he is independent with his care for the most part. His is at the bedside & stated that she helps his with his showers sometime. At discharge patient plans to return home and feels this is a safe discharge. CM discussed availability of home health, rehab services, and medical equipment. He has a walker with a seat, BSC, tub chair, and a wheelchair at home. He has had home health in the past but does not need it anymore. He is a patient of Dr Unger and uses [facility] on [address]. Patient denied known discharge needs at this time. CM will continue to follow and will assist as needed with dc plans/needs. DCP REVIEW SUMMARY ANTICIPATED D/C DATE: EXPECTED LOS : CASE STATUS: DCP Initiated INITIAL REVIEW: 02/19/2021 INITIAL REVIEWER: Lucie Cabral FINAL DISCHARGE DISPOSITION: 01 : Home or Self Care (Routine Discharge) FINAL REVIEWER: FINAL REVIEW DATE: DCP Focus Questions & Answers QUESTION: ANSWER : PATIENT: FATOUMATA RENDON ENCOUNTER: [id number] MEDICAL RECORD#: [id number] ADMISSION DATE: 02/19/2021 DISCHARGE DATE: 02/21/2021 ATTENDING MD: JANES RAMIREZ : AGE: 80 MARITAL STATUS: M DC PLAN ID: [id number] FACILITY: [facility] PRINTED ON: 02/21/21 10:51 CT All edits/amendments must be made on the electronic document DICTATION DATE: 02/21/211050 FUR BLOWING MACHINE OPERATOR: LISA 02/21/21 1051 RPT#: [id number] DC DATE:02/21/21 STATUS: DIS IN [facility] [address] [place] [address] END OF REPORT
== END 2021-02-21 10:50 | disposition home or self-care (01) | DRG 690 ==
LOC: D.ER 03:41 → D.EDHOLD 06:22 → D.MS 06:22
PROVIDERS: Family Medicine; ADMIT Family Medicine; ATTEND Family Medicine
DX: N39.0 Urinary tract infection, site not specified (principal); K92.2 Gastrointestinal hemorrhage, unspecified; F03.90 Unspecified dementia, unspecified severity, without behavioral disturbance, psychotic disturbance, mood disturbance, and anxiety; R53.1 Weakness; Z85.01 Personal history of malignant neoplasm of esophagus; N18.9 Chronic kidney disease, unspecified; K21.9 Gastro-esophageal reflux disease without esophagitis; J98.4 Other disorders of lung; D50.9 Iron deficiency anemia, unspecified; I12.9 Hypertensive chronic kidney disease with stage 1 through stage 4 chronic kidney disease, or unspecified chronic kidney disease